=== PATIENT | male | born 1960 | race Caucasian/White ===

== ENCOUNTER → 2016-07-31 | Outpatient (CLI) | payer OTHER ==
--- NOTE | 2016-08-04 10:52 | REP ---
MRI LEFT LOWER LEG: TECHNIQUE: Multiple pre- and post IV gadolinium sequences in sagittal, axial and coronal planes with the intravenous administration of 19 mL gadolinium. COMPARISON: 04/11/2012 Once again, there is mild ill-defined low signal on T1 in the mid aspect of the left tibia with associated heterogeneous increased signal on T2-weighted images. The abnormal signal is seen in the medullary cavity. No abnormal cortical signal is seen. Once again, the length of the involved tibia is about 9 cm unchanged since the prior exam. Signal intensity is unchanged since the prior exam. Adjacent atrophic and edematous change in the anterior tibialis muscle is again noted. I do not see significant abnormal enhancement following the intravenous administration of gadolinium. IMPRESSION: Stable signal abnormality in the central tibial shaft, mid aspect. 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 Adjacent edema and atrophy involving the anterior tibial muscle at that level. There are no acute changes when compared to the prior exam. Signed by Natanael Sevilla MD 08/04/2016 12:35 P
== END ==
LOC: M RAD 12:39
PROVIDERS: ATTEND Physician Assistant Medical
DX: M79.605 Pain in left leg (principal); Z85.9 Personal history of malignant neoplasm, unspecified
CPT/HCPCS: 73720; A9576

== ENCOUNTER → 2020-02-27 | Outpatient (CLI) | payer OTHER ==
--- NOTE | 2020-03-01 06:50 | ECHO ---
DATE OF PROCEDURE: 02/27/2020 Age: 59 Gender: Male Height: 71 inches Weight: 200 pounds PATIENT LOCATION: Outpatient. REFERRING PHYSICIAN: Zach Guerin DO. INDICATION: Abnormal chest x-ray. MEASUREMENTS: 2D Measurements: RV 4.0 cm LV 5.1 cm Septum 1.1 cm Posterior wall 1.1 cm Aortic Root 3.3 cm LA 4.0 cm LVEF 65% Doppler Measurements: AV 1.61 m/s LVOT 1.11 m/s MV-E 92, A 80, E/A ratio 1.2 Early mitral deceleration time 181 msec E prime medial 9.5, A prime medial 11.3, E prime lateral 11 Average E/E prime ratio 9/PCWP - 13 mmHg PV 0.85 m/s Pulmonary artery acceleration time 115 msec RVSP 35 mmHg IVC 1.7 cm COMMENTS: Normal sinus rhythm without intraventricular conduction disturbance. Technically challenging study, but diagnostically useful information was still obtained. M-mode and two-dimensional echocardiography was performed with pulse, continuous wave, color flow, and tissue Doppler studies. Normal left ventricular size, wall thickness, and wall motion. Borderline dilated left atrium with currently normal Doppler assessment of LV diastolic function and estimated mean left atrial pressure. Normal right heart chamber sizes and motion with Doppler findings to suggest pulmonary arterial pressure upper limits of normal to mildly increased. Normal IVC size and collapse against an elevated central venous pressure. Normal aortic dimension. Normal appearing and functioning valvular structures. No apparent intracardiac mass or pericardial effusion. MTDD
== END ==
LOC: M CARPUL 10:51
PROVIDERS: ATTEND Family Medicine
DX: R07.89 Other chest pain (principal); R05 Cough; Z87.891 Personal history of nicotine dependence

== ENCOUNTER → 2020-03-29 | Outpatient (CLI) | payer OTHER ==
--- NOTE | 2020-03-29 14:11 | PFTRPT ---
Visit Date: 03/29/2020 Referring Doctor: Zach Guerin Height: 71.00 Inches Weight: 200.00 Lbs BSA: 2.11 Diagnosis: COUGH Pre and post bronchodilator studies have excellent technical quality. Difficulty with the required maneuver is noted. Forced vital capacity is normal. FEV1 is in proportion. Obstructive index is therefore normal. Expiratory limit of the flow-volume loop suggests difficulty with the required maneuver. No significant bronchodilator response is identified. Total lung capacity is normal. Residual volume is in proportion. Diffusing capacity mildly elevated. No hemoglobin available for correction. Airway resistance and conductance are normal. IMPRESSION: Mild elevation of the diffusing capacity requires clinical correlation, otherwise normal study. MTDD
== END ==
LOC: M CARPUL 13:28
PROVIDERS: ATTEND Family Medicine
DX: R05 Cough (principal)

== ENCOUNTER → 2020-04-12 | Outpatient (CLI) | payer OTHER ==
[~2020-04-12] MED LIST: METHACHOLINE KIT (J7674) INH ONE
--- NOTE | 2020-04-12 13:25 | PFTRPT ---
Height: 71.00 Inches Weight: 200.00 Lbs BSA: 2.11 Diagnosis: R05 DATE: 04/12/2020 ORDERED BY: Zach Guerin DO QUALITY: Study of excellent technical quality. PROCEDURE: Under protocol, methacholine was administered. Even after a maximal dose of 25 mg or 188.875 CDUs, no provocation dose ever achieved. IMPRESSION: Negative methacholine challenge study. MTDD
== END ==
LOC: M CARPUL 12:25
PROVIDERS: ATTEND Family Medicine
DX: R05 Cough (principal)
CPT/HCPCS: 94070; J7674

== ENCOUNTER → 2020-04-12 | Outpatient (CLI) | payer OTHER ==
--- NOTE | 2020-04-14 16:05 | SLEEPHOME ---
DATE: 04/12/2020 ORDERED BY: Dr. Lemus [facility] home sleep testing was performed due to concern for the obstructive sleep apnea syndrome in this patient with a history of pulmonary hypertension. For testing, a nocturnal T3 respiratory monitoring device was used. Continuous record was made of pulse, oxygen saturation, air flow, chest and abdominal strain, and body position. There was 8 hours and 49 minutes of data reviewed. There was 6 hours and 54 minutes marked as time in bed, and during the internal marked time in bed, there were 94 respiratory events identified of 10 seconds in duration or greater for a respiratory event index of 13.6. The events were primarily obstructive. Baseline pulse rate averaged 57 beats per minute. The pulse rate ranged between 40 and 127. Baseline saturation was 95$, and saturations fell to 83%. Testing was performed in both the supine and nonsupine positions. IMPRESSION: Abnormal home sleep testing with repetitive respiratory events and oxygen desaturations to 83% with a respiratory event index of 13.6 is consistent with the obstructive sleep apnea syndrome. RECOMMENDATION: The patient should be encouraged to undergo formal sleep evaluation.
== END ==
LOC: M SLEEP HO 13:29
PROVIDERS: ATTEND Internal Medicine Cardiovascular Disease
DX: I27.20 Pulmonary hypertension, unspecified (principal); R05 Cough
CPT/HCPCS: 94070; G0399; J7674

== ENCOUNTER → 2020-04-22 | Outpatient (CLI) | payer OTHER ==
--- NOTE | 2020-04-23 06:38 | REP ---
INDICATION: ABN FINDINGS OF LUNG FIELD COMPARISON: 02/12/2019 TECHNIQUE: Axial noncontrast images from the thoracic inlet to the upper abdomen with coronal and sagittal reformations. This CT examination was performed using the following dose reduction techniques: Automated exposure control, adjustment of mA and/or kv according to the patient's size, and use of iterative reconstruction technique. FINDINGS: The bilateral lung silvestre are well aerated and relatively symmetric. No consolidation, significant nodule or mass lesion appreciated. Tracheobronchial tree is patent. No pleural effusion. No pneumothorax. No evidence for adenopathy. Thoracic aorta, pulmonary vasculature, and heart/pericardium are essentially normal. Surrounding musculoskeletal structures are intact. Limited upper abdomen demonstrates normal bilateral adrenal glands and evidence for cholelithiasis. IMPRESSION: No acute mediastinal or pleuroparenchymal process appreciated. <Electronically signed by Irvin Springer > 04/23/20 [id number]
== END ==
LOC: M RAD 15:30
PROVIDERS: ATTEND Internal Medicine Pulmonary Disease
DX: Z12.2 Encounter for screening for malignant neoplasm of respiratory organs (principal); R91.8 Other nonspecific abnormal finding of lung field

== ENCOUNTER → 2022-03-08 | Outpatient (CLI) | payer OTHER ==
[~2022-03-08] MED LIST changes: +GABA-1171; +KLON0.5T; -METHACHOLINE KIT (J7674) INH ONE; +PROHANCE 279.3MG/ML 15ML VIAL ONE; +PROHANCE 279.3MG/ML 5ML VIAL ONE; +RAMI1CAP26
== END ==
LOC: M PLAIMG 09:36
PROVIDERS: ATTEND Internal Medicine Medical Oncology
DX: C41.9 Malignant neoplasm of bone and articular cartilage, unspecified (principal); M79.605 Pain in left leg
CPT/HCPCS: 73720; A9576

== ENCOUNTER → 2023-03-07 | Outpatient (REF) | payer OTHER ==
[~2023-03-07] MED LIST changes: -PROHANCE 279.3MG/ML 15ML VIAL ONE; -PROHANCE 279.3MG/ML 5ML VIAL ONE
== END ==
LOC: M LABSMT 09:24
PROVIDERS: ATTEND Urology
DX: Z53.9 Procedure and treatment not carried out, unspecified reason (principal)

== ENCOUNTER → 2023-03-20 | Outpatient (REF) | payer OTHER ==
[2023-03-20 17:44] LABS: APPEARANCE, URINE CLEAR (CLEAR); BACTERIA, URINE AUTO NEGATIVE (NEGATIVE); BILIRUBIN, URINE AUTO NEGATIVE (NEGATIVE); BLOOD, URINE BLOOD NEGATIVE (NEGATIVE); COLOR, URINE STRAW (YELLOW); GLUCOSE, URINE (UA) AUTO NEGATIVE (NEGATIVE); KETONE, URINE AUTO NEGATIVE (NEGATIVE); LEUKOCYTE ESTERASE, URINE AUTO NEGATIVE (NEGATIVE); NITRITE, URINE AUTO NEGATIVE (NEGATIVE); PROTEIN, URINE AUTO NEGATIVE (NEGATIVE); RBC, URINE AUTO 0 /HPF (0-3); SPECIFIC GRAVITY URINE AUTO 1.004 (1.002-1.035); SQUAMOUS EPITHELIAL CELL UR AU 0 /HPF (0-6); UROBILINOGEN, URINE AUTO 0.2 mg/dL (0.0-2.0); WBC, URINE AUTO 0 /HPF (0-3)
== END ==
LOC: M SMT 17:08
PROVIDERS: ATTEND Urology
DX: R31.29 Other microscopic hematuria (principal)

== ENCOUNTER 2023-12-11 10:04 | Day surgery (SDC) | payer OTHER ==
[~2023-12-11] VITALS: Ht 180.3 cm; Wt 94.0 kg
[~2023-12-11 10:04] MED LIST changes: +CBD oil PO; +CLON0.5T17 PO; -KLON0.5T; +KLON0.5T8; +LIDOCAINE 2% 100MG/5ML SDV (FOR ANES.) As Ordered ONE; +MILK500C PO; +RAMI10CA64; +RAMI10CA64 PO; -RAMI1CAP26; +TURM500T PO; +propofoL 200 MG/20 ML VIAL As Ordered ONE
[2023-12-11] MEDS: NS 1,000 ML IV ONE (10:25)
[2023-12-11] MEDS ORDERED: fentaNYL 100 MCG/2 ML INJECTION As Ordered ONE (11:10)
[2023-12-11 11:50] VITALS: TEMP 97.9
[2023-12-11 12:20] VITALS: BP 129/74; O2SAT 97
== END 2023-12-11 12:31 | disposition home or self-care (01) ==
LOC: M OPP 10:04
PROVIDERS: ATTEND Internal Medicine Gastroenterology
DX: D12.2 Benign neoplasm of ascending colon (principal); D12.5 Benign neoplasm of sigmoid colon; K57.30 Diverticulosis of large intestine without perforation or abscess without bleeding; R10.84 Generalized abdominal pain; R19.4 Change in bowel habit; K22.89 Other specified disease of esophagus; K44.9 Diaphragmatic hernia without obstruction or gangrene; R11.0 Nausea; K31.89 Other diseases of stomach and duodenum; G47.30 Sleep apnea, unspecified; Z99.89 Dependence on other enabling machines and devices; F17.200 Nicotine dependence, unspecified, uncomplicated; I10 Essential (primary) hypertension; Z79.899 Other long term (current) drug therapy; Z88.5 Allergy status to narcotic agent
CPT/HCPCS: 43239; 45380; 45385; 88305; J3010

== ENCOUNTER → 2024-01-14 | Outpatient (CLI) | payer OTHER ==
[~2024-01-14] MED LIST changes: -LIDOCAINE 2% 100MG/5ML SDV (FOR ANES.) As Ordered ONE; -propofoL 200 MG/20 ML VIAL As Ordered ONE
== END ==
LOC: M PLAIMG 08:31
PROVIDERS: ATTEND Internal Medicine Cardiovascular Disease
DX: I77.810 Thoracic aortic ectasia (principal); I27.20 Pulmonary hypertension, unspecified; I08.1 Rheumatic disorders of both mitral and tricuspid valves

== ENCOUNTER → 2024-06-10 | Outpatient (CLI) | payer OTHER | LOC: M EKG 09:32 | PROVIDERS: ATTEND Registered Nurse | DX: I49.3 Ventricular premature depolarization (principal) ==

== ENCOUNTER → 2024-11-18 | Outpatient (CLI) | payer OTHER | LOC: M PLAIMG 13:24 | PROVIDERS: ATTEND Internal Medicine Pulmonary Disease | DX: G47.33 Obstructive sleep apnea (adult) (pediatric) (principal) ==

== ENCOUNTER → 2025-01-08 | Outpatient (CLI) | payer OTHER ==
[~2025-01-08] MED LIST changes: +PROHANCE 279.3MG/ML 15ML VIAL ONE; +PROHANCE 279.3MG/ML 5ML VIAL ONE
== END ==
LOC: M PLAIMG 13:34
PROVIDERS: ATTEND Student in an Organized Health Care Education/Training Program
DX: R25.3 Fasciculation (principal); R26.9 Unspecified abnormalities of gait and mobility; M47.812 Spondylosis without myelopathy or radiculopathy, cervical region; M50.13 Cervical disc disorder with radiculopathy, cervicothoracic region; M48.02 Spinal stenosis, cervical region
CPT/HCPCS: 70553; 72156; A9576